=== PATIENT | female | born 1980 | race Caucasian/White ===

== ENCOUNTER 2016-10-08 19:53 | Emergency (ER) | payer MEDICAID ==
[2016-10-08 20:17] LABS: BASOPHIL# 0.1 X 10^3uL (0.0-0.1); BASOPHILS 1.3 % (0.0-2.0); EOSINOPHILS 1.3 % (0.0-6.0); EOSINOPHILS# 0.1 X 10^3uL (0.0-0.4); HEMATOCRIT 44.4 % (36.0-48.0); HEMOGLOBIN 15.4 g/dL (12.0-16.0); LYMPHOCYTES 15.1 % (20.0-40.0); LYMPHOCYTES# 1.5 X 10^3uL (0.8-3.8); MEAN CELL VOLUME 93.7 fL (80.0-100.0); MEAN CORPUS. HGB CONCENTRATION 34.7 g/dL (32.0-36.0); MEAN CORPUSCULAR HEMOGLOBIN 32.5 pg (29.0-35.0); MEAN PLATELET VOLUME 7.6 fL (7.4-10.4); MONOCYTES 5.4 % (2.0-10.0); MONOCYTES# 0.5 X 10^3uL (0.2-1.0); NEUTROPHILS 76.9 % (54.0-75.0); NEUTROPHILS# 7.6 X 10^3uL (2.6-6.7); PLATELET COUNT 406 X 10^3uL (130-440); RED BLOOD COUNT 4.74 X 10^6uL (4.20-6.10); RED CELL DISTRIBUTION WIDTH 11.6 % (11.5-14.5); WHITE BLOOD COUNT 9.8 X 10^3uL (3.9-10.7)
[2016-10-08 20:27] LABS: BLOOD UREA NITROGEN 15 mg/dL (7-17); CHLORIDE 103 mmol/L (98-107); CREATININE 0.8 mg/dL (0.5-1.0); EST GLOMERULAR FILTRATION RATE > 60 mL/min; ETHYL ALCOHOL 268 mg/dL (<10); GLUCOSE 92 mg/dL (70-100); POTASSIUM 4.4 mmol/L (3.5-5.1); SODIUM 145 mmol/L (137-145)
[2016-10-08] MEDS ORDERED: ceFAZolin 1 GM/10 ML VIAL ONE (20:41)
[2016-10-08] MEDS ORDERED: KETOROLAC TROMETHAMINE 30 MG/ML VIAL ONE (20:41)
[2016-10-08] MEDS ORDERED: NORMAL SALINE 100 ML IV ONE (20:42)
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
[2016-10-08] MEDS ORDERED: HYDROcodone/APAP PREPAC 5/325 1 TAB TABLET PO ONE (23:13)
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
== END 2016-10-08 23:12 | disposition home or self-care (01) ==
LOC: ER 19:53
DX: S91.342A Puncture wound with foreign body, left foot, initial encounter (principal); W34.010A Accidental discharge of airgun, initial encounter; Y92.019 Unspecified place in single-family (private) house as the place of occurrence of the external cause; F10.129 Alcohol abuse with intoxication, unspecified; F17.210 Nicotine dependence, cigarettes, uncomplicated
CPT/HCPCS: 80048; 80320; 85025; 96365; 96366; 96375; 99284; J0690; J1885